=== PATIENT | female | born 2000 | race Caucasian/White ===

== ENCOUNTER 2019-05-24 18:38 | Emergency (ER) | payer OTHER ==
[~2019-05-24] VITALS: Ht 167.6 cm; Wt 56.7 kg
== END 2019-05-24 22:34 | disposition home or self-care (01) ==
LOC: ER 18:38
DX: J40 Bronchitis, not specified as acute or chronic (principal); B96.0 Mycoplasma pneumoniae [M. pneumoniae] as the cause of diseases classified elsewhere

== ENCOUNTER 2022-09-01 10:15 | Outpatient (CLI) | payer OTHER | END 2022-09-01 10:18 | disposition home or self-care (01) | LOC: SONOGRAMA 10:15 | PROVIDERS: ATTEND Pathology Anatomic Pathology & Clinical Pathology | DX: D34 Benign neoplasm of thyroid gland (principal); E04.9 Nontoxic goiter, unspecified; E04.1 Nontoxic single thyroid nodule ==